=== PATIENT | female | born 1960 | race Caucasian/White ===

== ENCOUNTER → 2019-12-20 11:39 | Outpatient (CLI) | payer OTHER, SELFPAY ==
[2019-12-21 23:44] LABS: COVID19 Sendout Not Detected (Not Detect)
== END ==
PROVIDERS: Visit Provider Physician Assistant
DX: Z01.812 Encounter for preprocedural laboratory examination (principal)
CPT/HCPCS: 87635

== ENCOUNTER 2019-12-23 09:45 | Day surgery (SDC) | payer OTHER, SELFPAY ==
--- NOTE | 2019-12-23 | PATH_ITS ---
[facility] Accession Number: [id number] . 01 Material submitted: . PART A: rectum - RECTAL POLYPS X2 PART B: rectum - RECTAL POLYPS X2 . 01 Clinical history: . SDC . 02 Diagnosis: A. Rectum, Polyps: Fragments of hyperplastic polyp (two polyps removed). . B. Rectum, Polyps: Fragment of tubular adenoma and fragments of hyperplastic polyp (two polyps removed). MRV 12/25/2019 1513 Local . 02 Electronically signed: . Anjel Clement MD, PhD, Pathologist NPI- [id number] . 01 Gross description: . A. Specimen A is received in formalin, labeled rectal polyp and consists of three landaverde-pink fragments of soft tissue, measuring 0.7 x 0.6 x 0.3 cm in aggregate. The specimen is entirely submitted in cassette A1. B. Specimen B is received in formalin, labeled rectal polyp and consists of four landaverde-pink polyps ranging from 0.4 to 0.7 cm. The bases are inked blue, and the specimen is entirely submitted in cassette B1. ([id number]) /[facility] 12/24/2019 1707 Local . 02 Pathologist provided ICD-10: D12.8, K62.1 . 02 CPT . 395379, [id number] Performed at: 01 [facility] [address], [place], [place] [id number] MD Live Lott MD Phone: [phone] Performed at: 02 [facility] [address] [place], [place] [id number] MD Abby Mansfield MD Phone: [phone]
[2019-12-23 10:06] VITALS: BMI 35.6
[2019-12-23 10:14] VITALS: BP 149/97; PULSE 96; RESP 16; TEMP 36.3; O2SAT 95
[2019-12-23] MEDS: LACTATED RINGERS 1,000 ML 200 ML IV (10:25)
--- NOTE | 2019-12-23 10:27 | PM.HP.1 ---
History of Present Illness History of Present Illness Date Patient Seen: 12/23/19 Time Patient Seen: 10:28 Chief complaint: NJC Narrative: The patient presents for colorectal sreening. They have never had any previous examination for such. No personal or family history of colon cancer. On further history denies any recent gastrointestinal symptoms. No nausea, vomiting, abdominal pain, loss of appetite, unexplained weight loss, change in bowel habits, diarrhea, constipation, melena, hematochezia, or bright red blood per rectum. Patient History Medical History Obesities, morbid (Acute) Surgical History S/P hip replacement (Acute) Family & Social History Tobacco & Substance use: Tobacco type cigars Smoking Status Current every day smoker alcohol intake frequency a few times a month Substance Use Type does not use Meds Home Medications and Allergies Home Medications Medication Instructions Recorded Confirmed Type sodium,potassium,mag sulfates 17.5 177 ml PO DAILY #354 ml 11/26/19 12/23/19 Rx gram-3.13 gram-1.6 gram oral soln Allergies Allergy/AdvReac Type Severity Reaction Status Date / Time Sulfa (Sulfonamide Allergy Intermediate Hives Verified 12/23/19 10:04 Antibiotics) ibuprofen Allergy Mild Hives Verified 12/23/19 10:04 Review of Systems Review of Systems Narrative: A 10 point review of systems is negative except as noted in the HPI Exam Vital Signs (past 8 hours): - 12/23/19 10:14 Temperature 97.4 F L Pulse Rate 96 H Respiratory Rate 16 Blood Pressure 149/97 H Pulse Oximetry 95 Oxygen Delivery Method Room Air Narrative Exam Narrative: General-no acute distress, obese woman HEENT-moist mucous membranes, no scleral icterus Neck-supple, no lymphadenopathy Chest- non labored respirations, clear to auscultation bilaterally Cardiac-regular rate no peripheral edema Abdomen-soft, nontender, non distended Extremities-warm, well perfused Neurological-alert and oriented, no focal deficits Assessment & Plan Assessment and plan (1) Screening for colon cancer: Status: Acute Assessment & Plan narrative: The patient requires colorectal screening and colonoscopy is recommended. Technical details were discussed. Risks, benefits, alternatives explained. Risks including but not limited to myocardial infarction, aspiration, bleeding, pain, missed lesion, incomplete examination, need for further radiographic studies, colonic perforation, and need for major abdominal surgery were discussed. All questions were answered to their satisfaction, and they are in agreement with this plan.
[2019-12-23] MEDS: MIDAZOLAM 5 MG/5 ML VIAL IV (10:37)
[2019-12-23] MEDS: fentaNYL 250 MCG/5 ML INJ IV (10:38)
--- NOTE | 2019-12-23 11:23 | PM.OP.ENDO ---
Operative Date/Time/Diagnoses Date of procedure: 12/23/19 Time of procedure: 11:23 Pre-op diagnosis: Screening colonoscopy Post-op diagnosis: same Procedure & Clinicians Study performed: Colonoscopy and polypectomy Same procedure as scheduled: Yes Indications: 59-year-old woman no previous colonoscopy here for routine screening Surgeon: Tj Rehman Procedure Notes SCOAP/Timeout: Performed Procedure in detail: Patient placed in left lateral recumbent position. Time out was performed. Procedural sedation was administered with Versed and Fentanyl. Examination began with a thorough inspection of the perianal area there was no evidence of fissures, fistulae, external hemorrhoids or cutaneous malignancy. The colonoscopy scope was then placed into the rectum the the lumen was insufflated with air. The scope was carefully advanced forward. Ultimately the cecum was intubated and confirmed by identification of the ileocecal valve, the appendiceal orifice and the confluence of the taenia. The scope was then slowly withdrawn examining colon thoroughly in all directions. In the rectum the rectal columns were identified and retroflexion of the scope was performed for inspection of the distal rectum and anal canal. The colonoscopy was notable for the followin. Quality of the preparation-excellent 2. Multiple rectal sub cm polyps likely 8 removed with biopsy forceps and hot snare. Polyps removed in their entirety hemostasis was observed. Scope withdrawal time: 27 Sedation minutes: 50 Findings: polyp Specimen(s): other (Rectal polyps) Complications: none Impression: Multiple polyps Post-procedure Recommendations: Colonscopy in 3 years Disposition: same day surgery
[2019-12-23 11:28] VITALS: BP 123/81; PULSE 78; RESP 13; TEMP 36.4; O2SAT 97
[2019-12-23 11:34] VITALS: BP 120/75; PULSE 82; RESP 22; O2SAT 97
[2019-12-23 11:39] VITALS: BP 130/81; PULSE 81; RESP 23; TEMP 36.4; O2SAT 95
== END 2019-12-23 11:49 | disposition home or self-care (01) ==
PROVIDERS: PCP Nurse Practitioner; Referring Provider Nurse Practitioner; Visit Provider Surgery
PROC: 0DJD8ZZ Inspection of Lower Intestinal Tract, Via Natural or Artificial Opening Endoscopic (ICD-10-PCS; CPT 45378; principal; 2019-12-23 10:45)
DX: Z12.11 Encounter for screening for malignant neoplasm of colon (principal); E66.01 Morbid (severe) obesity due to excess calories; F17.210 Nicotine dependence, cigarettes, uncomplicated; D12.8 Benign neoplasm of rectum; K62.1 Rectal polyp
CPT/HCPCS: 45385; 45380; 99152; 99153; J2250; J3010

== ENCOUNTER → 2020-05-23 15:08 | Outpatient (CLI) | payer OTHER, SELFPAY ==
--- NOTE | 2020-05-23 | DI.MRI.S_ITS ---
PROCEDURE: MR HAND LT WO CON INDICATIONS: Pain in left finger(s) TECHNIQUE: Noncontrast coronal T1 spin echo and T2 fast spin echo with and without fat saturation, axial proton density fast spin echo and T2 fast spin echo with fat saturation, sagittal T1 spin echo and STIR through the hand and fingers. COMPARISON: [facility], RG, HAND MIN 3VW (LT), 02/03/2020, 12:21. [facility] [place], CR, XR FINGER(S) LEFT, 05/11/2020, 14:15. FINDINGS: Image quality: Excellent. Bones: No acute trabecular bone injury or fracture. Severe degenerative changes are seen at the 1st carpometacarpal joint with full-thickness cartilage loss and subchondral cystic changes and marginal osteophytes. Additional mild to moderate degenerative changes are also noted at the radiocarpal articulation, the 1st metacarpophalangeal joint, and scattered throughout the interphalangeal joints. Soft tissues: A small amount of fluid is seen surrounding the distal abductor pollicis longus and extensor pollicis brevis tendons in the 1st extensor compartment, compatible with mild tenosynovitis. The included flexor and extensor tendons are otherwise intact. There is full-thickness the defect involving the central triangle fibrocartilage disc. Visualized muscles demonstrate normal bulk and internal signal. No intramuscular masses identified. No ganglion cysts. IMPRESSION: 1. Mild de Quervain tenosynovitis of the distal 1st extensor compartment tendons. 2. Severe degenerative changes at the 1st carpometacarpal joint. Multifocal mild to moderate degenerative changes as described above. 3. Full-thickness tearing or degenerative perforation of the central triangle fibrocartilage disc. 1. Dictated by: Vin Montesinos M.D. on 05/25/2020 at 8:34 Approved by: Vin Montesinos M.D. on 05/25/2020 at 8:45
== END ==
PROVIDERS: PCP Family Medicine; Referring Provider Orthopaedic Surgery; Visit Provider Orthopaedic Surgery
DX: M79.645 Pain in left finger(s) (principal); M65.4 Radial styloid tenosynovitis [de Quervain]
CPT/HCPCS: 73218

== ENCOUNTER → 2020-07-28 10:14 | Outpatient (CLI) | payer OTHER, SELFPAY ==
[2020-07-28 10:49] LABS: COVID19 -Nasal RAPID Negative (Negative)
== END ==
PROVIDERS: PCP Family Medicine; Visit Provider Physician Assistant
DX: Z20.822 Contact with and (suspected) exposure to COVID-19 (principal)
CPT/HCPCS: 87635

== ENCOUNTER 2020-07-30 12:17 | Day surgery (SDC) | payer OTHER, SELFPAY ==
[2020-07-28 08:46] VITALS: BMI 36.6
[2020-07-30 12:40] VITALS: BP 142/88; PULSE 92; RESP 16; TEMP 36.6; O2SAT 96; BMI 36.6
[2020-07-30] MEDS: LACTATED RINGERS 1,000 ML 42 ML IV (13:04)
--- NOTE | 2020-07-30 13:23 | PM.HP.1 ---
History of Present Illness History of Present Illness Date Patient Seen: 07/30/20 Time Patient Seen: 13:23 Chief complaint: SD Narrative: 60-year-old female with a longstanding injury to the left thumb resulting in an ulnar collateral ligament tear Patient History Medical History Obesities, morbid Surgical History History of colonoscopy (12/23/19) S/P hip replacement Family & Social History Social History: household members none Tobacco & Substance use: Tobacco type cigarettes Smoking Status Current every day smoker alcohol intake current alcohol intake frequency a few times a month Substance Use Type does not use Meds Home Medications and Allergies Home Medications Medication Instructions Recorded Confirmed Type bupropion HCl 300 mg PO DAILY 07/30/20 07/30/20 History Allergies Allergy/AdvReac Type Severity Reaction Status Date / Time Sulfa (Sulfonamide Allergy Intermediate Hives Verified 12/23/19 10:04 Antibiotics) ibuprofen Allergy Mild Hives Verified 12/23/19 10:04 Review of Systems Review of Systems ROS: Yes All systems reviewed with the patient and are negative except as otherwise documented Exam Vital Signs (past 8 hours): - 07/30/20 12:40 Temperature 98 F Pulse Rate 92 H Respiratory Rate 16 Blood Pressure 142/88 H Pulse Oximetry 96 Oxygen Delivery Method Room Air Narrative Exam Narrative: Significant laxity to the MCP joint of the left thumb. Signs of a complete rupture of the ulnar collateral ligament. Radial collateral ligament is intact with no sign of any injury. 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 Complications including but not limiting to bleeding, infection, fracture, nerve injury, continued pain postoperatively or instability postoperatively were discussed in detail. Medical complications including but not limited to deep venous thrombosis event, anesthesia complications with excessive bleeding, vascular events or cardiac events and other possible complications were discussed in detail. Need for postoperative rehabilitation and anticipated hospital stay and clinical course were discussed in detail. Patient acknowledges understanding and elects to proceed with surgery. COVID-19 COVID-19 status: Negative Time Spent With Patient Time with patient: less than 15 minutes
--- NOTE | 2020-07-30 13:26 | PM.PREOP ---
Pre-operative Note COVID-19 COVID-19 status: Negative Interval Note History & Physical reviewed/Exam performed by Physician: Yes Changes to H&P: No
[2020-07-30] MEDS: CEFAZOLIN 1 GM VIAL 2 GM IV (14:01)
--- NOTE | 2020-07-30 14:24 | SUR.OPER ---
Supine on padded OR bed, head on pillow, right arm secured on padded arm board at <90 degrees abduction, left arm on large padded arm board controlled by surgeon, legs uncrossed, safety belt at thigh, tape over blanket over lower legs.
[2020-07-30] MEDS: BUPIVACAINE 0.5% W/ EPI (PF) 30 ML VIAL INJ (14:36)
[2020-07-30 15:07] VITALS: BP 114/69; PULSE 88; RESP 16; TEMP 36.4; O2SAT 92
[2020-07-30 15:11] VITALS: BP 122/76; PULSE 89; RESP 12; O2SAT 92
[2020-07-30 15:16] VITALS: BP 141/84; PULSE 86; RESP 12; O2SAT 93
[2020-07-30] MEDS: OXYCODONE/ACETAMINOPHEN 5/325 TABLET 1 TAB PO (15:20)
--- NOTE | 2020-07-30 15:20 | PM.OP.1 ---
Operative Date/Time/Diagnoses Date of procedure: 07/30/20 Time of procedure: 14:20 Pre-op diagnosis: Left thumb ulnar collateral ligament rupture Post-op diagnosis: same Procedure & Clinicians Procedure: Ulnar collateral ligament repair with suture graft. Same procedure as scheduled: Yes Indications: Rupture of the ulnar collateral ligament of the left thumb. Surgeon: Tobias Cordero Click Yes if Unassisted: Yes Anesthesia Type: General Operative Notes Findings: Complete rupture of the ulnar collateral ligament. Closure Type: primary Specimen(s): none sent Applied: implant(s) (Two Arthrex swivel locks as well as labral tape) Estimated Blood Loss (mL): 0 Blood products transfused: none Tourniquet time (min): 43 Procedure in detail: Under service, patient was met in the holding area where his operative site was signed and witnessed by the OR staff. The surgeries once again discussed with the patient in remaining questions or concerns he had were answered fully. Patient was taken back to the operating theater placed on the operating table in a supine position. Great care was taken to ensure that all bony prominences were appropriately padded. Well-padded tourniquet was placed up along the upper extremity. Time-out was performed verifying patient's name, procedure, and operative site. The upper extremity was prepped and draped in the normal sterile fashion. Esmarch was used to exsanguinate the limb the tourniquet was turned up to 250 mm of mercury. Fifteen blade was used to make a curvilinear incision centered over the ulnar aspect of the MCP joint. Fifteen blade was used to incise the skin and fascial tissue. Bipolar was used to achieve hemostasis. Deep knife was used for continued sharp dissection. This allowed us to visualize the extensor retinaculum as well as the ulnar aspect of the MCP joint. A split was made in the fascial tissue to the ulnar aspect of the joint. This gave us good visualization of the joint capsule as well as the ulnar collateral ligament. It was completely ruptured off the proximal phalanx and had retracted quite a bit. Sharp dissection was used to free up the scarring of the ulnar collateral ligament to the metacarpal. This allowed us to do a direct repair to its insertion site on the proximal phalanx. This gave a good repair but there was some concerns for the quality of the ligament tissue. It was decided to augment this repair doing a internal bracing with labral tape. So 2 K-wires were placed 1 in the metacarpal 1 in the proximal phalanx and the position of these K-wires was verified with the C-arm. Once we were satisfied with the positioning they were drilled and then irrigated. Labral tape was then tenodesed both distally and proximally across the repair as well as the joint. This helped augment the ulnar collateral ligament repair. The thumb was taken through range of motion and was very stable with stressing of the ulnar collateral ligament. The significant laxity patient had preoperatively had been corrected. The wound was copiously irrigated and then closed in layered fashion. The retinacular tissue was repaired back to itself and the skin was then closed with 5 0 nylon. The hand was cleaned dried dressed and patient was placed into a thumb spica splint. Patient was taken to the PACU in stable condition. Complications: none Post-operative Condition: stable Disposition: PACU Plan for aftercare: Patient will be immobilized for 2 weeks. After 2 weeks patient can be placed into a games keep her thumb brace for an additional 4 weeks. Once placed in the brace it is okay for the patient to come out of the brace to work on gentle flexion and extension exercises.
[2020-07-30 15:27] VITALS: BP 132/70; PULSE 87; RESP 16; O2SAT 93
[2020-07-30 15:35] VITALS: BP 127/83; PULSE 83; RESP 16; TEMP 36.4; O2SAT 93
== END 2020-07-30 15:55 | disposition home or self-care (01) ==
PROVIDERS: PCP Family Medicine; Referring Provider Orthopaedic Surgery; Visit Provider Orthopaedic Surgery
PROC: (CPT 26540; principal; 2020-07-30 13:45)
DX: S63.642A Sprain of metacarpophalangeal joint of left thumb, initial encounter (principal); M18.12 Unilateral primary osteoarthritis of first carpometacarpal joint, left hand; F17.210 Nicotine dependence, cigarettes, uncomplicated; J44.9 Chronic obstructive pulmonary disease, unspecified
CPT/HCPCS: 26541; J0690; J1100; J1885; J2250; J2405; J2704; J3010

== ENCOUNTER → 2024-12-10 15:03 | Outpatient (CLI) | payer OTHER, SELFPAY ==
--- NOTE | 2024-12-10 15:04 | DI.CT.S_ITS ---
PROCEDURE: CT LUNG LOW DOSE SCREENING INDICATIONS: H/o smoking, eval for nodule TECHNIQUE: Noncontrast 2.0-2.5 mm thick sections acquired from the pulmonary apices to the posterior costophrenic angles. 7 mm thick axial MIP, and 5 mm coronal and sagittal reformats were then acquired. For radiation dose reduction, the following was used: automated exposure control, adjustment of mA and/or kV according to patient size. COMPARISON: None. FINDINGS: Image quality: Diagnostic. Lower Neck: No enlarged lymph nodes. Thyroid: No thyroid nodules which require sonographic follow up, per consensus guidelines. Axillae: No enlarged lymph nodes. Chest Wall: Unremarkable. Bones: Unremarkable. Lungs and Pleura: No pneumothorax or pleural effusions. No consolidation or suspicious nodules. Heart: Heart size is normal. No pericardial effusion. Thoracic Vessels: The aorta and pulmonary arteries demonstrate normal size. Mediastinum and Nisha: No enlarged lymph nodes. Esophagus: No wall thickening. No hiatal hernia. Upper Abdomen: Right adrenal adenoma. IMPRESSION: No suspicious pulmonary nodules. LUNG-RADS 1; continued annual screening, if eligible. Clinically Significant Non-pulmonary Findings: None. Dictated by: Nir Vera M.D. on 12/10/2024 at 17:47 Approved by: Nir Vera M.D. on 12/10/2024 at 17:50
== END ==
PROVIDERS: PCP Nurse Practitioner; Referring Provider Internal Medicine Critical Care Medicine; Visit Provider Internal Medicine Critical Care Medicine
DX: Z12.2 Encounter for screening for malignant neoplasm of respiratory organs (principal); F17.210 Nicotine dependence, cigarettes, uncomplicated; D35.01 Benign neoplasm of right adrenal gland
CPT/HCPCS: 71271; 94060; 94726; 94729

== ENCOUNTER → 2024-12-10 15:22 | Outpatient (CLI) | payer OTHER, SELFPAY | PROVIDERS: PCP Nurse Practitioner; Referring Provider Internal Medicine Critical Care Medicine; Visit Provider Internal Medicine Critical Care Medicine | DX: R06.09 Other forms of dyspnea (principal); F17.210 Nicotine dependence, cigarettes, uncomplicated; J98.8 Other specified respiratory disorders | CPT/HCPCS: 94060; 94726; 94729 ==